=== PATIENT | male | born 1955 | race Caucasian/White ===

== ENCOUNTER 2016-06-29 18:29 | Emergency (ER) | payer OTHER ==
[~2016-06-29] VITALS: Ht 170.2 cm; Wt 88.0 kg
[2016-06-29] MEDS ORDERED: OCUFLOX 0.100 DROP/5 LEFT EYE (19:54)
[2016-06-29 20:29] VITALS: BP 155/91
== END 2016-06-29 20:28 | disposition home or self-care (01) ==
LOC: EXP 18:29 → EME 18:29 → EXP 20:28
DX: S05.01XA Injury of conjunctiva and corneal abrasion without foreign body, right eye, initial encounter (principal); Y99.0 Civilian activity done for income or pay; W22.8XXA Striking against or struck by other objects, initial encounter
CPT/HCPCS: 99281; 99284